=== PATIENT | female | born 1985 | race Caucasian/White ===

== ENCOUNTER → 2016-08-23 | Outpatient (CLI) | payer OTHER ==
[~2016-08-23] MED LIST: 'PARAFON FORTE500 M1 PO; ABREVA1 CRE TP; AMOXICILLIN500 MG PO; AMOXIL500 MG PO; ANAPROX DS550 MG PO; AUGMENTIN 875 M1 TAB PO; CEFUROXIME AXE250 MG PO; CELEXA40 MG; CILOXAN 2.5 ML2.5 ML OPH; CIPROFLOXACIN500 MG PO; CLARITIN10 MG PO; CLEOCIN HCL150 MG PO; CLINDAMYCIN150 MG; CLINDAMYCIN150 MG PO; COMPAZINE10 MG PO; CYCLOBENZAPRINE10 MG PO; DAYPRO600 M1 PO; DOXIPIN; DOXYCYCLINE HY100 M3 PO; HYDROCODONE BIT1 T11 PO; IBU-8800 MG PO; IBU800 MG PO; KEFLEX500 MG PO; LAMICTAL1 TAB; LAMICTAL100 MG PO; MACROBID100 M1 PO; MOTRIN800 MG PO; Motrin,Rufen800 MG PO; NAPROSYN; NAPROSYN500 MG PO; NO DAILY MEDS; PEN-VEE K500 MG PO; PERCOGESIC EXTR1 TAB PO; PHENERGAN W/DM120 ML PO; PHENERGAN25 M1 PO; PRILOSEC40 MG PO; PROZAC40 MG PO; ROBAXIN750 MG PO; TRAMADOL HCL50 MG PO; TRIMOX500 MG PO; TYLENOL W/CODEI1 TA2 PO; ULTRAM50 MG PO; VALIUM10 MG PO; VICODIN 5/500 505 MG PO; XANAX0.5 MG PO; XANAX1 MG PO; ZITHROMAX Z PA250 MG PO; ZOFRAN ODT4 MG SL; ZYRTEC10 MG PO
== END | disposition home or self-care (01) ==
LOC: MRI 01:58
DX: M51.37 Other intervertebral disc degeneration, lumbosacral region (principal); M47.896 Other spondylosis, lumbar region

== ENCOUNTER 2016-12-30 16:38 | Emergency (ER) | payer SELFPAY ==
[~2016-12-30] VITALS: Wt 98.0 kg
[2016-12-30] MEDS ORDERED: CEPHALEXIN500 M1 PO (19:06)
== END 2016-12-30 18:24 | disposition home or self-care (01) ==
LOC: ED 16:38
DX: S90.32XA Contusion of left foot, initial encounter (principal); L02.31 Cutaneous abscess of buttock; F17.200 Nicotine dependence, unspecified, uncomplicated; Z88.2 Allergy status to sulfonamides; W20.8XXA Other cause of strike by thrown, projected or falling object, initial encounter; Y93.89 Activity, other specified; Y92.89 Other specified places as the place of occurrence of the external cause; Y99.8 Other external cause status

== ENCOUNTER 2017-01-29 21:26 | Emergency (ER) | payer OTHER ==
[~2017-01-29] VITALS: Ht 177.8 cm; Wt 97.5 kg
[~2017-01-29 21:26] MED LIST changes: +CEPHALEXIN500 M1 PO
[2017-01-29] MEDS ORDERED: FLAGYL500 MG PO (21:56)
[2017-01-29] MEDS ORDERED: KETOROLAC10 MG PO (21:56)
[2017-01-29] MEDS ORDERED: VIBRAMYCIN100 MG PO (21:56)
== END 2017-01-29 22:02 | disposition home or self-care (01) ==
LOC: ED 21:26
DX: L03.116 Cellulitis of left lower limb (principal); F17.200 Nicotine dependence, unspecified, uncomplicated; Z88.2 Allergy status to sulfonamides

== ENCOUNTER 2017-04-17 11:34 | Emergency (ER) | payer OTHER ==
[~2017-04-17] VITALS: Ht 177.8 cm; Wt 104.3 kg
[~2017-04-17 11:34] MED LIST changes: +FLAGYL500 MG PO; +KETOROLAC10 MG PO; +VIBRAMYCIN100 MG PO
[2017-04-17] MEDS ORDERED: DOXYCYCLINE100 M3 PO (11:56)
[2017-04-17] MEDS ORDERED: NORCO 5-325 TA1 EACH PO (11:56)
== END 2017-04-17 12:10 | disposition home or self-care (01) ==
LOC: ED 11:34
DX: L02.01 Cutaneous abscess of face (principal); Z98.890 Other specified postprocedural states; Z98.51 Tubal ligation status; Z79.899 Other long term (current) drug therapy; Z88.2 Allergy status to sulfonamides

== ENCOUNTER 2017-05-02 17:08 | Emergency (ER) | payer OTHER ==
[~2017-05-02] VITALS: Ht 177.8 cm
[~2017-05-02 17:08] MED LIST changes: +DOXYCYCLINE100 M3 PO; +NORCO 5-325 TA1 EACH PO
== END 2017-05-02 20:26 | disposition home or self-care (01) ==
LOC: ED 17:08
DX: M54.2 Cervicalgia (principal); M54.5 Low back pain; M25.561 Pain in right knee; M25.562 Pain in left knee; Z88.2 Allergy status to sulfonamides; V59.9XXA Occupant (driver) (passenger) of pick-up truck or van injured in unspecified traffic accident, initial encounter; Y93.89 Activity, other specified; Y92.413 State road as the place of occurrence of the external cause; Y99.8 Other external cause status

== ENCOUNTER 2017-06-07 20:52 | Emergency (ER) | payer OTHER ==
[~2017-06-07] VITALS: Ht 165.1 cm; Wt 74.8 kg
[2017-06-07] MEDS ORDERED: ANAPROX DS550 MG PO (21:03)
[2017-06-07] MEDS ORDERED: VIBRAMYCIN100 MG PO (21:03)
== END 2017-06-07 21:12 | disposition home or self-care (01) ==
LOC: ED 20:52
DX: L02.01 Cutaneous abscess of face (principal); Z86.14 Personal history of Methicillin resistant Staphylococcus aureus infection; F17.200 Nicotine dependence, unspecified, uncomplicated; Z98.51 Tubal ligation status; Z98.890 Other specified postprocedural states; Z79.899 Other long term (current) drug therapy; Z88.2 Allergy status to sulfonamides

== ENCOUNTER 2018-01-30 13:57 | Emergency (ER) | payer OTHER ==
[~2018-01-30] VITALS: Ht 177.8 cm; Wt 95.3 kg
[2018-01-30] MEDS ORDERED: AMOXICILLIN500 M2 PO (14:48)
== END 2018-01-30 15:02 | disposition home or self-care (01) ==
LOC: ED 13:57
DX: H66.93 Otitis media, unspecified, bilateral (principal); J32.1 Chronic frontal sinusitis; Z88.2 Allergy status to sulfonamides

== ENCOUNTER 2018-07-04 13:27 | Emergency (ER) | payer OTHER ==
[~2018-07-04] VITALS: Ht 175.2 cm; Wt 108.0 kg
[~2018-07-04 13:27] MED LIST changes: +AMOXICILLIN500 M2 PO
[2018-07-04 14:07] LABS: BASO % 0.3 % (0.0-1.0); EOS # 0.2 10*3/uL (0.0-0.4); EOS % 1.9 % (1.0-4.0); HEMATOCRIT 44.4 % (37.0-47.0); HEMOGLOBIN 15.4 g/dl (12.0-16.0); LYMPH # 0.9 10*3/uL (1.3-4.4); MEAN CELL VOLUME 84.6 fl (81.0-99.0); MEAN CORPUSCULAR HGB 29.3 pg (27.0-31.0); MEAN CORPUSCULAR HGB CONC 34.7 g/dl (33.0-37.0); MEAN PLATELET VOLUME 9.5 fl (9.6-12.3); MONO # 0.7 10*3/uL (0.1-1.0); MONO % 7.8 % (3.0-9.0); NEUT # 7.6 10*3/uL (2.3-7.9); NEUT % 80.6 % (47.0-73.0); PLATELET COUNT AUTOMATED 246 10*3/uL (130-400); RED BLOOD COUNT 5.25 10*6/uL (4.10-5.10); RED CELL DISTRI WIDTH 12.6 % (0-14.5); WHITE BLOOD COUNT 9.5 10*3/uL (4.8-10.8)
[2018-07-04 14:23] LABS: ALBUMIN 3.9 gm/dl (3.1-4.5); ALKALINE PHOSPHATASE 61 U/L (45-117); BUN 14 mg/dl (7-24); CHLORIDE 104 mmol/L (98-107); CREATININE 0.85 mg/dL (0.55-1.02); LIPASE 76 U/L (73-393); POTASSIUM 3.4 mmol/L (3.5-5.1); SGOT/AST 11 IU/L (3-35); SGPT/ALT 26 U/L (12-78); SODIUM 133 mmol/L (136-145); TOTAL PROTEIN 7.2 gm/dL (6.4-8.2)
[2018-07-04 14:30] LABS: BILIRUBIN NEGATIVE (NEGATIVE); BLOOD NEGATIVE (NEGATIVE); CLARITY CLEAR (CLEAR); COLOR YELLOW (YELLOW); GLUCOSE NEGATIVE (NEGATIVE); KETONE NEGATIVE (NEGATIVE); LEUKO ESTERASE NEGATIVE (NEGATIVE); NITRITE NEGATIVE (NEGATIVE); PH 6.5 (5.0-9.0); SPECIFIC GRAVITY <= 1.005 (1.005-1.030); UROBILINOGEN 0.2 E.U./dl (0.2-1.0)
[2018-07-04 14:39] LABS: BACTERIA 1+
[2018-07-04] MEDS ORDERED: ZOFRAN4 MG PO (16:41)
== END 2018-07-04 16:48 | disposition home or self-care (01) ==
LOC: ED 13:27
PROVIDERS: Nurse Practitioner Family
DX: A08.4 Viral intestinal infection, unspecified (principal); Z88.2 Allergy status to sulfonamides

== ENCOUNTER 2018-11-14 13:28 | Emergency (ER) | payer OTHER ==
[~2018-11-14] VITALS: Ht 177.8 cm; Wt 104.3 kg
[~2018-11-14 13:28] MED LIST changes: +ZOFRAN4 MG PO
[2018-11-14 14:04] LABS: BASO % 0.5 % (0.0-1.0); EOS # 0.5 10*3/uL (0.0-0.4); EOS % 6.1 % (1.0-4.0); HEMATOCRIT 40.8 % (37.0-47.0); HEMOGLOBIN 13.6 g/dl (12.0-16.0); LYMPH # 1.9 10*3/uL (1.3-4.4); LYMPH % 25.4 % (27.0-41.0); MEAN CELL VOLUME 88.3 fl (81.0-99.0); MEAN CORPUSCULAR HGB 29.4 pg (27.0-31.0); MEAN CORPUSCULAR HGB CONC 33.3 g/dl (33.0-37.0); MEAN PLATELET VOLUME 9.7 fl (9.6-12.3); MONO # 0.6 10*3/uL (0.1-1.0); MONO % 7.5 % (3.0-9.0); NEUT # 4.6 10*3/uL (2.3-7.9); NEUT % 60.2 % (47.0-73.0); PLATELET COUNT AUTOMATED 254 10*3/uL (130-400); RED BLOOD COUNT 4.62 10*6/uL (4.10-5.10); RED CELL DISTRI WIDTH 13.2 % (0-14.5); WHITE BLOOD COUNT 7.7 10*3/uL (4.8-10.8)
[2018-11-14 14:21] LABS: ALBUMIN 3.8 gm/dl (3.1-4.5); ALKALINE PHOSPHATASE 55 U/L (45-117); BUN 7 mg/dl (7-24); CHLORIDE 109 mmol/L (98-107); LIPASE 114 U/L (73-393); POTASSIUM 3.3 mmol/L (3.5-5.1); SGOT/AST 13 IU/L (3-35); SGPT/ALT 21 U/L (12-78); SODIUM 141 mmol/L (136-145); TOTAL PROTEIN 6.8 gm/dL (6.4-8.2)
[2018-11-14 14:29] LABS: BILIRUBIN NEGATIVE (NEGATIVE); BLOOD NEGATIVE (NEGATIVE); CLARITY CLEAR (CLEAR); COLOR YELLOW (YELLOW); GLUCOSE NEGATIVE (NEGATIVE); KETONE NEGATIVE (NEGATIVE); LEUKO ESTERASE NEGATIVE (NEGATIVE); NITRITE NEGATIVE (NEGATIVE); UROBILINOGEN 0.2 E.U./dl (0.2-1.0)
[2018-11-14 14:36] LABS: EPITHELIAL CELLS 0-2
[2018-11-14] MEDS ORDERED: ZOFRAN4 MG PO (15:11)
== END 2018-11-14 15:40 | disposition home or self-care (01) ==
LOC: ED 13:28
PROVIDERS: Nurse Practitioner Family
DX: N30.10 Interstitial cystitis (chronic) without hematuria (principal); E16.2 Hypoglycemia, unspecified; K21.9 Gastro-esophageal reflux disease without esophagitis; Z88.2 Allergy status to sulfonamides

== ENCOUNTER 2018-12-19 13:34 | Emergency (ER) | payer OTHER ==
[~2018-12-19] VITALS: Ht 177.8 cm; Wt 90.7 kg
[2018-12-19] MEDS ORDERED: VIBRAMYCIN100 MG PO (15:00)
== END 2018-12-19 15:15 | disposition home or self-care (01) ==
LOC: ED 13:34
DX: L02.415 Cutaneous abscess of right lower limb (principal); L02.211 Cutaneous abscess of abdominal wall; F17.200 Nicotine dependence, unspecified, uncomplicated; Z88.2 Allergy status to sulfonamides; Z86.14 Personal history of Methicillin resistant Staphylococcus aureus infection

== ENCOUNTER 2019-01-01 20:09 | Emergency (ER) | payer OTHER ==
[~2019-01-01] VITALS: Ht 175.2 cm; Wt 104.3 kg
[2019-01-01] MEDS ORDERED: VALTREX1000 MG PO (21:17)
== END 2019-01-01 21:29 | disposition home or self-care (01) ==
LOC: ED 20:09
DX: B02.9 Zoster without complications (principal); F17.200 Nicotine dependence, unspecified, uncomplicated; Z88.2 Allergy status to sulfonamides; Z79.2 Long term (current) use of antibiotics

== ENCOUNTER 2019-01-10 19:11 | Inpatient (IN) | payer OTHER ==
[~2019-01-10] VITALS: Ht 175.3 cm; Wt 101.3 kg
[~2019-01-10 19:11] MED LIST changes: +VALTREX1000 MG PO
[2019-01-10 19:13] VITALS: BP 124/84
[2019-01-10 19:58] LABS: BASO # 0.1 10*3/uL (0.0-0.1); BASO % 0.5 % (0.0-1.0); EOS # 0.4 10*3/uL (0.0-0.4); EOS % 2.7 % (1.0-4.0); HEMATOCRIT 38.8 % (37.0-47.0); LYMPH # 2.1 10*3/uL (1.3-4.4); LYMPH % 13.9 % (27.0-41.0); MEAN CELL VOLUME 88.4 fl (81.0-99.0); MEAN CORPUSCULAR HGB 29.6 pg (27.0-31.0); MEAN CORPUSCULAR HGB CONC 33.5 g/dl (33.0-37.0); MEAN PLATELET VOLUME 9.8 fl (9.6-12.3); MONO # 0.8 10*3/uL (0.1-1.0); NEUT # 11.8 10*3/uL (2.3-7.9); NEUT % 77.4 % (47.0-73.0); PLATELET COUNT AUTOMATED 301 10*3/uL (130-400); RED BLOOD COUNT 4.39 10*6/uL (4.10-5.10); RED CELL DISTRI WIDTH 13.1 % (0-14.5); WHITE BLOOD COUNT 15.3 10*3/uL (4.8-10.8)
[2019-01-10 20:14] LABS: ALBUMIN 3.6 gm/dl (3.1-4.5); ALKALINE PHOSPHATASE 62 U/L (45-117); BUN 7 mg/dl (7-24); CHLORIDE 109 mmol/L (98-107); CREATININE 0.86 mg/dL (0.55-1.02); POTASSIUM 3.4 mmol/L (3.5-5.1); SGOT/AST 13 IU/L (3-35); SGPT/ALT 20 U/L (12-78); SODIUM 139 mmol/L (136-145); TOTAL PROTEIN 7.4 gm/dL (6.4-8.2)
[2019-01-11 00:15] VITALS: BP 100/63
[2019-01-11] MEDS ORDERED: ONDANSETRON HYDR4 MG PO (00:23)
[2019-01-11] MEDS ORDERED: ELMIRON100 MG PO ×2 (00:24→00:26)
[2019-01-11] MEDS ORDERED: NAPROXEN500 MG PO (00:26)
[2019-01-11] MEDS ORDERED: OMEPRAZOLE40 MG PO (00:27)
[2019-01-11] MEDS ORDERED: IBU800 M1 PO (00:28)
[2019-01-11] MEDS ORDERED: FLUOXETINE HYDR20 M1 PO (00:31)
[2019-01-11] MEDS ORDERED: GOOD NEIGHBOR L10 MG PO (00:33)
[2019-01-11 08:00] VITALS: BP 100/65
[2019-01-11 12:00] VITALS: BP 106/58
[2019-01-11] MEDS ORDERED: AUGMENTIN 875875 MG PO (13:59)
== END 2019-01-11 15:00 | disposition home or self-care (01) | DRG 720 ==
LOC: ED 19:11 → EDHOLD 23:23 → 5E 23:23
PROVIDERS: Nurse Practitioner Family; ADMIT Internal Medicine
DX: A41.9 Sepsis, unspecified organism (principal); K61.1 Rectal abscess; B02.9 Zoster without complications; F41.9 Anxiety disorder, unspecified; K21.9 Gastro-esophageal reflux disease without esophagitis; E87.6 Hypokalemia; E87.8 Other disorders of electrolyte and fluid balance, not elsewhere classified; E44.0 Moderate protein-calorie malnutrition; F17.210 Nicotine dependence, cigarettes, uncomplicated; E66.9 Obesity, unspecified; N30.10 Interstitial cystitis (chronic) without hematuria; F31.60 Bipolar disorder, current episode mixed, unspecified; Z87.440 Personal history of urinary (tract) infections; Z98.891 History of uterine scar from previous surgery; Z90.89 Acquired absence of other organs; Z98.51 Tubal ligation status; Z82.49 Family history of ischemic heart disease and other diseases of the circulatory system; Z81.8 Family history of other mental and behavioral disorders; Z84.89 Family history of other specified conditions; Z88.2 Allergy status to sulfonamides; Z79.899 Other long term (current) drug therapy; Z71.6 Tobacco abuse counseling; Z68.33 Body mass index [BMI] 33.0-33.9, adult

== ENCOUNTER 2019-05-02 22:25 | Emergency (ER) | payer OTHER ==
[~2019-05-02] VITALS: Wt 106.6 kg
[~2019-05-02 22:25] MED LIST changes: +AUGMENTIN 875875 MG PO; +ELMIRON100 MG PO; +FLUOXETINE HYDR20 M1 PO; +GOOD NEIGHBOR L10 MG PO; +IBU800 M1 PO; +NAPROXEN500 MG PO; +OMEPRAZOLE40 MG PO; +ONDANSETRON HYDR4 MG PO
[2019-05-02] MEDS ORDERED: CEFADROXIL500 M1 PO (23:09)
== END 2019-05-03 00:10 | disposition home or self-care (01) ==
LOC: ED 22:25
DX: S51.811A Laceration without foreign body of right forearm, initial encounter (principal); F41.9 Anxiety disorder, unspecified; K21.9 Gastro-esophageal reflux disease without esophagitis; F17.200 Nicotine dependence, unspecified, uncomplicated; F31.9 Bipolar disorder, unspecified; Z79.2 Long term (current) use of antibiotics; Z88.2 Allergy status to sulfonamides; Z79.899 Other long term (current) drug therapy; W00.0XXA Fall on same level due to ice and snow, initial encounter; Y93.89 Activity, other specified; Y92.89 Other specified places as the place of occurrence of the external cause; Y99.8 Other external cause status

== ENCOUNTER 2019-08-06 15:33 | Emergency (ER) | payer OTHER ==
[~2019-08-06] VITALS: Ht 177.8 cm; Wt 106.6 kg
[~2019-08-06 15:33] MED LIST changes: +CEFADROXIL500 M1 PO
[2019-08-06] MEDS ORDERED: ANTIBIOTIC28.4 GM T (16:26)
[2019-08-06] MEDS ORDERED: CEPHALEXIN500 M1 PO (16:26)
== END 2019-08-06 17:26 | disposition home or self-care (01) ==
LOC: ED 15:33
DX: S61.211A Laceration without foreign body of left index finger without damage to nail, initial encounter (principal); F41.9 Anxiety disorder, unspecified; K21.9 Gastro-esophageal reflux disease without esophagitis; F31.9 Bipolar disorder, unspecified; Z88.2 Allergy status to sulfonamides; Z88.1 Allergy status to other antibiotic agents; Z79.899 Other long term (current) drug therapy; Z98.890 Other specified postprocedural states; Z96.22 Myringotomy tube(s) status; Z90.89 Acquired absence of other organs; Z98.51 Tubal ligation status; W26.8XXA Contact with other sharp object(s), not elsewhere classified, initial encounter; Y93.89 Activity, other specified; Y92.89 Other specified places as the place of occurrence of the external cause; Y99.8 Other external cause status

== ENCOUNTER → 2019-09-26 | Emergency (ER) | payer OTHER ==
[~2019-09-26] VITALS: Ht 175.2 cm; Wt 108.0 kg
[~2019-09-26] MED LIST changes: +ANTIBIOTIC28.4 GM T
== END ==
LOC: ED 15:47
DX: L02.31 Cutaneous abscess of buttock (principal); K21.9 Gastro-esophageal reflux disease without esophagitis; F17.200 Nicotine dependence, unspecified, uncomplicated; Z88.2 Allergy status to sulfonamides; Z79.899 Other long term (current) drug therapy

== ENCOUNTER → 2020-01-01 | Outpatient (CLI) | payer OTHER ==
[2020-01-01 11:10] LABS: BILIRUBIN Negative (Negative); BLOOD Negative (Negative); CLARITY Clear (Clear); COLOR Yellow (Yellow); GLUCOSE Negative (Negative); KETONE Negative (Negative); LEUKO ESTERASE Negative (Negative); NITRITE Negative (Negative); SPECIFIC GRAVITY 1.015 (1.001-1.030)
[2020-01-01 11:11] LABS: BASO # 0.1 10*3/uL (0.0-0.1); BASO % 0.5 % (0.0-1.0); EOS # 0.9 10*3/uL (0.0-0.4); EOS % 7.9 % (1.0-4.0); LYMPH # 2.5 10*3/uL (1.3-4.4); MEAN CELL VOLUME 84.2 fl (81.0-99.0); MEAN CORPUSCULAR HGB 28.4 pg (27.0-31.0); MEAN CORPUSCULAR HGB CONC 33.8 g/dl (33.0-37.0); MEAN PLATELET VOLUME 9.7 fl (9.6-12.3); MONO # 0.7 10*3/uL (0.1-1.0); MONO % 6.2 % (3.0-9.0); NEUT # 7.2 10*3/uL (2.3-7.9); NEUT % 62.2 % (47.0-73.0); PLATELET COUNT AUTOMATED 282 10*3/uL (130-400); RED BLOOD COUNT 4.75 10*6/uL (4.10-5.10); RED CELL DISTRI WIDTH 13.4 % (0-14.5); RETICULOCYTE % 2.07 % (0.50-2.50); WHITE BLOOD COUNT 11.5 10*3/uL (4.8-10.8)
[2020-01-01 11:41] LABS: RBC 0-2 rbc/hpf (0-2)
[2020-01-01 11:53] LABS: ALBUMIN 3.7 gm/dl (3.1-4.5); BUN 10 mg/dl (7-24); CHLORIDE 108 mmol/L (98-107); CHOLESTEROL 175 mg/dL (<200); CREATININE 0.88 mg/dL (0.55-1.02); HDL CHOLESTEROL 32 mg/dl (40-60); IRON 42 ug/dL (50-170); LDL CHOLESTEROL 105 mg/dL (9-159); SGOT/AST 13 IU/L (3-35); SGPT/ALT 18 U/L (12-78); SODIUM 137 mmol/L (136-145); THYROXINE (T4) TOTAL 8.7 ug/dl (4.8-13.9); TOTAL PROTEIN 7.4 gm/dL (6.4-8.2); TRIGLYCERIDES 188 mg/dl (<150); URIC ACID 4.4 mg/dL (2.6-6.0); VLDL CHOLESTEROL 38 mg/dL (6-40)
[2020-01-01 12:01] LABS: ALKALINE PHOSPHATASE 64 U/L (45-117); T3 UPTAKE 32 % (31-39); TOTAL IRON BINDING CAPACITY 299 ug/dl (250-450)
[2020-01-01 12:09] LABS: BETA-HCG, QUANT < 1.0 mIU/mL (1-3)
[2020-01-01 13:52] LABS: FERRITIN 24.4 ng/mL (10.0-291.0)
[2020-01-02 12:07] LABS: ANTI-DSDNA ANTIBODIES <1 IU/mL (0-9); RHEUMATOID ARTHRITIS FACTOR <10.0 IU/mL (0.0-13.9)
== END | disposition home or self-care (01) ==
LOC: LAB 10:44
PROVIDERS: ATTEND Family Medicine
DX: R79.89 Other specified abnormal findings of blood chemistry (principal); R53.83 Other fatigue; E55.9 Vitamin D deficiency, unspecified; R06.02 Shortness of breath

== ENCOUNTER → 2020-04-01 | Outpatient (CLI) | payer OTHER | END | disposition home or self-care (01) | LOC: CARD 03-26 09:30 | PROVIDERS: ATTEND Internal Medicine Cardiovascular Disease | DX: I49.3 Ventricular premature depolarization (principal) ==

== ENCOUNTER 2020-04-27 18:15 | Emergency (ER) | payer OTHER ==
[~2020-04-27] VITALS: Ht 177.8 cm; Wt 111.1 kg
[2020-04-27] MEDS ORDERED: CLINDAMYCIN HC300 MG PO (18:42)
[2020-04-27] MEDS ORDERED: Motrin,Rufen800 MG PO (18:42)
== END 2020-04-27 18:45 | disposition home or self-care (01) ==
LOC: ED 18:15
DX: L02.01 Cutaneous abscess of face (principal); L02.411 Cutaneous abscess of right axilla; F41.9 Anxiety disorder, unspecified; K21.9 Gastro-esophageal reflux disease without esophagitis; F31.9 Bipolar disorder, unspecified; F17.200 Nicotine dependence, unspecified, uncomplicated; Z88.2 Allergy status to sulfonamides; Z79.2 Long term (current) use of antibiotics; Z79.899 Other long term (current) drug therapy; Z98.890 Other specified postprocedural states; Z90.89 Acquired absence of other organs; Z98.51 Tubal ligation status; Z96.22 Myringotomy tube(s) status

== ENCOUNTER 2020-07-27 13:29 | Emergency (ER) | payer OTHER ==
[~2020-07-27] VITALS: Ht 175.2 cm; Wt 104.3 kg
[~2020-07-27 13:29] MED LIST changes: +CLINDAMYCIN HC300 MG PO
[2020-07-27] MEDS ORDERED: PREDNISONE20 M1 PO (16:06)
== END 2020-07-27 16:12 | disposition home or self-care (01) ==
LOC: ED 13:29
DX: Z88.2 Allergy status to sulfonamides (principal); Z79.2 Long term (current) use of antibiotics; Z79.899 Other long term (current) drug therapy; Z98.890 Other specified postprocedural states; Z96.22 Myringotomy tube(s) status; Z90.89 Acquired absence of other organs; Z98.51 Tubal ligation status; F17.200 Nicotine dependence, unspecified, uncomplicated; T78.49XA Other allergy, initial encounter; X58.XXXA Exposure to other specified factors, initial encounter

== ENCOUNTER → 2021-03-30 | Outpatient (CLI) | payer OTHER ==
[~2021-03-30] MED LIST changes: +CIPRO500 MG PO; +FLOVENT DISKUS50 MCG INH; +FLUOXETINE40 MG PO; +HYDROCODONE-AC1 EAC1 PO; +METOPROLOL SUCC50 M1 PO; +ONDANSETRON4 MG SL; +PREDNISONE20 M1 PO; +PROZAC20 MG PO; +TOPROL XL25 MG PO; +ZIPRASIDONE HCL40 MG PO; +ZYRTEC10 M3 PO
== END | disposition home or self-care (01) ==
LOC: COVID19 16:05
PROVIDERS: ATTEND Internal Medicine
DX: Z11.52 Encounter for screening for COVID-19 (principal)

== ENCOUNTER → 2021-09-11 | Outpatient (CLI) | payer OTHER ==
[2021-09-11 16:17] LABS: BASO # 0.1 10*3/uL (0.0-0.1); BASO % 0.8 % (0.0-1.0); EOS # 0.9 10*3/uL (0.0-0.4); EOS % 9.9 % (1.0-4.0); HEMATOCRIT 41.8 % (37.0-47.0); LYMPH # 2.4 10*3/uL (1.3-4.4); LYMPH % 25.5 % (27.0-41.0); MEAN CELL VOLUME 85.3 fl (81.0-99.0); MEAN CORPUSCULAR HGB 28.8 pg (27.0-31.0); MEAN CORPUSCULAR HGB CONC 33.7 g/dl (33.0-37.0); MEAN PLATELET VOLUME 9.3 fl (9.6-12.3); MONO # 0.6 10*3/uL (0.1-1.0); MONO % 6.7 % (3.0-9.0); NEUT # 5.4 10*3/uL (2.3-7.9); NEUT % 56.8 % (47.0-73.0); PLATELET COUNT AUTOMATED 297 10*3/uL (130-400); RED CELL DISTRI WIDTH 12.9 % (0-14.5); RETICULOCYTE % 2.22 % (0.50-2.50); WHITE BLOOD COUNT 9.5 10*3/uL (4.8-10.8)
[2021-09-11 16:22] LABS: BILIRUBIN Negative (Negative); BLOOD Negative (Negative); CLARITY Clear (Clear); COLOR Yellow (Yellow); GLUCOSE Negative (Negative); KETONE Negative (Negative); LEUKO ESTERASE Negative (Negative); NITRITE Negative (Negative); SPECIFIC GRAVITY 1.015 (1.001-1.030)
[2021-09-11 16:31] LABS: BACTERIA 1+
[2021-09-11 16:35] LABS: ALKALINE PHOSPHATASE 68 U/L (45-117); BUN 12 mg/dl (7-24); CHLORIDE 107 mmol/L (98-107); CHOLESTEROL 190 mg/dL (<200); GAMMA GLUTAMYL TRANSPEPTIDASE 21 U/L (5-55); IRON 122 ug/dL (50-170); LDL CHOLESTEROL 127 mg/dL (9-159); POTASSIUM 3.9 mmol/L (3.5-5.1); SGOT/AST 16 IU/L (3-35); SGPT/ALT 17 U/L (12-78); SODIUM 138 mmol/L (136-145); TOTAL IRON BINDING CAPACITY 346 ug/dl (250-450); TOTAL PROTEIN 7.5 gm/dL (6.4-8.2); TRIGLYCERIDES 157 mg/dl (<150); URIC ACID 5.6 mg/dL (2.6-6.0)
[2021-09-11 17:11] LABS: FERRITIN 14.8 ng/mL (10.0-291.0); VITAMIN D, 25-HYDROXY 13.1 ng/mL (30-100)
[2021-09-12 04:06] LABS: RHEUMATOID FACTOR <10.0 IU/mL (<14.0)
[2021-09-14 13:06] LABS: ANTI-DSDNA ANTIBODIES 1 IU/mL (0-9)
== END | disposition home or self-care (01) ==
LOC: LAB 15:53
PROVIDERS: ATTEND Family Medicine
DX: M19.032 Primary osteoarthritis, left wrist (principal); M19.031 Primary osteoarthritis, right wrist; M21.831 Other specified acquired deformities of right forearm; R53.83 Other fatigue; R79.89 Other specified abnormal findings of blood chemistry; R74.8 Abnormal levels of other serum enzymes; E55.9 Vitamin D deficiency, unspecified

== ENCOUNTER 2022-09-11 14:29 | Emergency (ER) | payer OTHER ==
[~2022-09-11] VITALS: Ht 172.7 cm; Wt 93.0 kg
[2022-09-11] MEDS ORDERED: PREDNISONE50 MG PO (14:56)
[2022-09-11] MEDS ORDERED: BENADRYL ALLERG25 M5 PO (14:56)
== END 2022-09-11 14:55 | disposition home or self-care (01) ==
LOC: ED 14:29
DX: T78.40XA Allergy, unspecified, initial encounter (principal); H57.89 Other specified disorders of eye and adnexa; F41.9 Anxiety disorder, unspecified; K21.9 Gastro-esophageal reflux disease without esophagitis; F31.9 Bipolar disorder, unspecified; Z88.2 Allergy status to sulfonamides; Z90.89 Acquired absence of other organs; Z98.51 Tubal ligation status; Z98.890 Other specified postprocedural states; F12.90 Cannabis use, unspecified, uncomplicated; F17.200 Nicotine dependence, unspecified, uncomplicated; X58.XXXA Exposure to other specified factors, initial encounter

== ENCOUNTER 2023-01-15 12:56 | Emergency (ER) | payer OTHER ==
[~2023-01-15] VITALS: Ht 172.7 cm; Wt 97.5 kg
[~2023-01-15 12:56] MED LIST changes: +BENADRYL ALLERG25 M5 PO; +PREDNISONE50 MG PO
[2023-01-15] MEDS ORDERED: Carafate1 GM PO (14:03)
[2023-01-15] MEDS ORDERED: BUSPAR5 MG PO (14:03)
[2023-01-15] MEDS ORDERED: CIPROFLOXACIN500 M4 PO (14:03)
[2023-01-15] MEDS ORDERED: GOOD NEIGHBOR L10 MG PO (14:04)
[2023-01-15] MEDS ORDERED: AMOX-CLAV 875-1 EACH PO (16:49)
== END 2023-01-15 17:23 | disposition home or self-care (01) ==
LOC: ED 12:56
DX: K80.20 Calculus of gallbladder without cholecystitis without obstruction (principal); M54.50 Low back pain, unspecified; J32.9 Chronic sinusitis, unspecified; R51.9 Headache, unspecified; R09.81 Nasal congestion; F41.9 Anxiety disorder, unspecified; F31.9 Bipolar disorder, unspecified; K21.9 Gastro-esophageal reflux disease without esophagitis; E66.9 Obesity, unspecified; F17.210 Nicotine dependence, cigarettes, uncomplicated; Z88.2 Allergy status to sulfonamides; Z79.2 Long term (current) use of antibiotics; Z79.899 Other long term (current) drug therapy; Z68.30 Body mass index [BMI] 30.0-30.9, adult; Z98.890 Other specified postprocedural states; Z96.22 Myringotomy tube(s) status; Z90.89 Acquired absence of other organs; Z98.51 Tubal ligation status

== ENCOUNTER 2023-01-31 15:13 | Emergency (ER) | payer OTHER ==
[~2023-01-31] VITALS: Ht 172.7 cm; Wt 97.5 kg
[~2023-01-31 15:13] MED LIST changes: +AMOX-CLAV 875-1 EACH PO; +BUSPAR5 MG PO; +CIPROFLOXACIN500 M4 PO; +Carafate1 GM PO
[2023-01-31] MEDS ORDERED: NATURE'S BLEND F1 MG PO (16:46)
[2023-01-31] MEDS ORDERED: METOPROLOL SUC100 M1 PO (16:46)
[2023-01-31] MEDS ORDERED: ONDANSETRON HYDR4 MG PO (16:47)
[2023-01-31] MEDS ORDERED: VITAMIN D350 MC2 GT (16:47)
[2023-01-31 17:21] LABS: BILIRUBIN Negative (Negative); BLOOD Negative (Negative); CLARITY Clear (Clear); COLOR Yellow (Yellow); GLUCOSE Negative (Negative); KETONE Negative (Negative); LEUKO ESTERASE Negative (Negative); NITRITE Negative (Negative); SPECIFIC GRAVITY <= 1.005 (1.001-1.030); UROBILINOGEN 0.2 E.U./dl (0.0-1.0)
[2023-01-31 17:48] LABS: BACTERIA 1+; RBC 0-2 rbc/hpf (0-2); WBC 0-2 wbc/hpf (0-5); YEAST TRACE
== END 2023-01-31 19:19 | disposition home or self-care (01) ==
LOC: ED 15:13
PROVIDERS: Nurse Practitioner
DX: R30.0 Dysuria (principal); F41.9 Anxiety disorder, unspecified; K21.9 Gastro-esophageal reflux disease without esophagitis; F31.9 Bipolar disorder, unspecified; Z88.2 Allergy status to sulfonamides; Z98.890 Other specified postprocedural states; Z90.89 Acquired absence of other organs; Z98.51 Tubal ligation status; F17.200 Nicotine dependence, unspecified, uncomplicated; F12.90 Cannabis use, unspecified, uncomplicated

== ENCOUNTER 2023-05-30 15:04 | Emergency (ER) | payer OTHER ==
[~2023-05-30] VITALS: Ht 175.2 cm; Wt 100.7 kg
[~2023-05-30 15:04] MED LIST changes: +METOPROLOL SUC100 M1 PO; +NATURE'S BLEND F1 MG PO; +VITAMIN D350 MC2 GT
[2023-05-30] MEDS ORDERED: ALPRAZOLAM0.5 M3 PO (15:17)
[2023-05-30] MEDS ORDERED: ZYRTEC10 M2 PO (15:17)
[2023-05-30] MEDS ORDERED: Rabies Immune Globulin 300 UNIT/2 ML VIAL IM ONE ×2 (15:30→15:40)
[2023-05-30] MEDS ORDERED: Rabies Vaccine 1 ML VIAL IM ONE (15:35)
[2023-05-30] MEDS ORDERED: Amoxicillin/Clavulanate Pota 875 MG TAB PO ONE (15:40)
[2023-05-30] MEDS ORDERED: Rabies Immune Globulin 150O UNIT/10 ML IM ONE (15:40)
[2023-05-30] MEDS ORDERED: AMOX-CLAV 875-1 EACH PO (15:42)
== END 2023-05-30 16:47 | disposition home or self-care (01) ==
LOC: ED 15:04
DX: S61.236A Puncture wound without foreign body of right little finger without damage to nail, initial encounter (principal); F41.9 Anxiety disorder, unspecified; L03.011 Cellulitis of right finger; F31.9 Bipolar disorder, unspecified; K21.9 Gastro-esophageal reflux disease without esophagitis; F17.200 Nicotine dependence, unspecified, uncomplicated; F12.10 Cannabis abuse, uncomplicated; Z88.2 Allergy status to sulfonamides; Z98.890 Other specified postprocedural states; Z90.89 Acquired absence of other organs; Z98.51 Tubal ligation status; W55.01XA Bitten by cat, initial encounter; Y93.89 Activity, other specified; Y92.89 Other specified places as the place of occurrence of the external cause; Y99.8 Other external cause status

== ENCOUNTER 2023-06-02 17:29 | Emergency (ER) | payer OTHER ==
[~2023-06-02] VITALS: Ht 175.2 cm; Wt 99.8 kg
[~2023-06-02 17:29] MED LIST changes: +ALPRAZOLAM0.5 M3 PO; +ZYRTEC10 M2 PO
[2023-06-02] MEDS ORDERED: Rabies Vaccine 1 ML VIAL IM ONE (17:45)
== END 2023-06-02 17:58 | disposition home or self-care (01) ==
LOC: ED 17:29
DX: T14.8XXD Other injury of unspecified body region, subsequent encounter (principal); F12.90 Cannabis use, unspecified, uncomplicated; F17.200 Nicotine dependence, unspecified, uncomplicated; Z88.2 Allergy status to sulfonamides; Z98.890 Other specified postprocedural states; Z90.89 Acquired absence of other organs; Z98.51 Tubal ligation status; W64.XXXD Exposure to other animate mechanical forces, subsequent encounter

== ENCOUNTER → 2023-08-18 | Outpatient (CLI) | payer OTHER | END | disposition home or self-care (01) | LOC: US 07:53 | PROVIDERS: ATTEND Family Medicine | DX: K76.0 Fatty (change of) liver, not elsewhere classified (principal); R10.11 Right upper quadrant pain; R10.2 Pelvic and perineal pain; R11.0 Nausea; N92.6 Irregular menstruation, unspecified ==

== ENCOUNTER → 2023-09-09 | Outpatient (CLI) | payer OTHER ==
[~2023-09-09] MED LIST changes: +IOHEXOL 300 MG/ML 100 ML VIAL IV ONE; +IOHEXOL 300 MG/ML 100 ML VIAL ONE
== END | disposition home or self-care (01) ==
LOC: CT 13:00
PROVIDERS: ATTEND Family Medicine
DX: E27.8 Other specified disorders of adrenal gland (principal); R10.84 Generalized abdominal pain; R10.2 Pelvic and perineal pain

== ENCOUNTER → 2023-09-14 | Outpatient (CLI) | payer OTHER ==
[~2023-09-14] MED LIST changes: -IOHEXOL 300 MG/ML 100 ML VIAL IV ONE; -IOHEXOL 300 MG/ML 100 ML VIAL ONE; +SINCALIDE 2 MCG in SODIUM CHLORIDE 0.9% 50 ML IV ONE
== END | disposition home or self-care (01) ==
LOC: NM 00:19
PROVIDERS: ATTEND Family Medicine
DX: R10.84 Generalized abdominal pain (principal); R11.0 Nausea; R11.10 Vomiting, unspecified

== ENCOUNTER → 2023-12-09 | Outpatient (CLI) | payer OTHER ==
[~2023-12-09] MED LIST changes: -SINCALIDE 2 MCG in SODIUM CHLORIDE 0.9% 50 ML IV ONE
[2023-12-09 14:06] LABS: BASO # 0.1 10*3/uL (0.0-0.1); BASO % 0.5 % (0.0-1.0); EOS # 0.7 10*3/uL (0.0-0.4); EOS % 7.1 % (1.0-4.0); HEMATOCRIT 36.9 % (37.0-47.0); LYMPH # 2.3 10*3/uL (1.3-4.4); LYMPH % 24.8 % (27.0-41.0); MEAN CELL VOLUME 84.6 fl (81.0-99.0); MEAN CORPUSCULAR HGB 27.3 pg (27.0-31.0); MEAN CORPUSCULAR HGB CONC 32.2 g/dl (33.0-37.0); MEAN PLATELET VOLUME 8.6 fl (9.6-12.3); MONO # 0.5 10*3/uL (0.1-1.0); MONO % 5.8 % (3.0-9.0); NEUT # 5.7 10*3/uL (2.3-7.9); NEUT % 61.4 % (47.0-73.0); PLATELET COUNT AUTOMATED 326 10*3/uL (130-400); RED BLOOD COUNT 4.36 10*6/uL (4.10-5.10); RED CELL DISTRI WIDTH 14.1 % (0-14.5); RETICULOCYTE % 1.87 % (0.50-2.50); WHITE BLOOD COUNT 9.3 10*3/uL (4.8-10.8)
[2023-12-09 14:14] LABS: BILIRUBIN Negative (Negative); BLOOD 1+ (Negative); CLARITY Clear (Clear); COLOR Yellow (Yellow); GLUCOSE Negative (Negative); KETONE Negative (Negative); LEUKO ESTERASE Negative (Negative); NITRITE Negative (Negative); UROBILINOGEN 0.2 E.U./dl (0.0-1.0)
[2023-12-09 14:35] LABS: EPITHELIAL CELLS 16-20
[2023-12-09 14:51] LABS: VITAMIN D, 25-HYDROXY 40.3 ng/mL (30-100)
[2023-12-09 14:52] LABS: ALKALINE PHOSPHATASE 76 U/L (46-116); BUN 7 mg/dl (9-23); CHLORIDE 104 mmol/L (98-107); CHOLESTEROL 204 mg/dL (<200); GAMMA GLUTAMYL TRANSPEPTIDASE 26 U/L (0-73); LDL CHOLESTEROL 120 mg/dL (9-159); POTASSIUM 4.1 mmol/L (3.4-5.1); SGPT/ALT 32 U/L (5-49); T3 UPTAKE 27.9 % (22.4-36.7); THYROXINE (T4) TOTAL 7.1 ug/dl (4.5-10.9); TOTAL PROTEIN 6.9 gm/dL (6.0-8.0); TRIGLYCERIDES 227 mg/dl (<150); URIC ACID 5.5 mg/dL (3.1-7.8)
[2023-12-12 13:06] LABS: ANTI-DSDNA ANTIBODIES <1 IU/mL (0-9)
== END | disposition home or self-care (01) ==
LOC: LAB 13:40
PROVIDERS: ATTEND Family Medicine
DX: R53.83 Other fatigue (principal); R79.89 Other specified abnormal findings of blood chemistry; E78.5 Hyperlipidemia, unspecified; E55.9 Vitamin D deficiency, unspecified; R06.02 Shortness of breath

== ENCOUNTER 2024-01-26 13:20 | Emergency (ER) | payer OTHER ==
[~2024-01-26] VITALS: Ht 175.2 cm; Wt 99.8 kg
[2024-01-26 14:21] LABS: BASO # 0.1 10*3/uL (0.0-0.1); BASO % 0.8 % (0.0-1.0); EOS # 0.5 10*3/uL (0.0-0.4); EOS % 5.9 % (1.0-4.0); HEMATOCRIT 35.2 % (37.0-47.0); MEAN CELL VOLUME 84.2 fl (81.0-99.0); MEAN CORPUSCULAR HGB CONC 32.1 g/dl (33.0-37.0); MEAN PLATELET VOLUME 8.5 fl (9.6-12.3); MONO # 0.6 10*3/uL (0.1-1.0); MONO % 6.9 % (3.0-9.0); NEUT # 5.5 10*3/uL (2.3-7.9); NEUT % 59.6 % (47.0-73.0); PLATELET COUNT AUTOMATED 288 10*3/uL (130-400); RED BLOOD COUNT 4.18 10*6/uL (4.10-5.10); WHITE BLOOD COUNT 9.2 10*3/uL (4.8-10.8)
[2024-01-26 14:44] LABS: BUN 6 mg/dl (9-23); CHLORIDE 105 mmol/L (98-107)
[2024-01-26] MEDS ORDERED: Amoxicillin/Clavulanate Pota 875 MG TAB PO ONE (15:05)
== END 2024-01-26 15:06 | disposition home or self-care (01) ==
LOC: ED 13:20
PROVIDERS: Nurse Practitioner Family
DX: B34.9 Viral infection, unspecified (principal); Z20.822 Contact with and (suspected) exposure to COVID-19; R10.2 Pelvic and perineal pain; H66.93 Otitis media, unspecified, bilateral; F41.9 Anxiety disorder, unspecified; F31.9 Bipolar disorder, unspecified; K21.9 Gastro-esophageal reflux disease without esophagitis; F17.200 Nicotine dependence, unspecified, uncomplicated; F12.90 Cannabis use, unspecified, uncomplicated; Z88.2 Allergy status to sulfonamides; Z90.89 Acquired absence of other organs; Z98.890 Other specified postprocedural states; Z98.51 Tubal ligation status

== ENCOUNTER 2024-02-25 16:04 | Emergency (ER) | payer OTHER ==
[~2024-02-25] VITALS: Ht 175.2 cm; Wt 104.3 kg
[2024-02-25] MEDS ORDERED: METOPROLOL SUCC50 M1 PO (16:32)
[2024-02-25 17:52] LABS: BASO # 0.1 10*3/uL (0.0-0.1); BASO % 0.4 % (0.0-1.0); EOS # 0.1 10*3/uL (0.0-0.4); EOS % 0.9 % (1.0-4.0); HEMATOCRIT 37.4 % (37.0-47.0); MEAN CELL VOLUME 81.5 fl (81.0-99.0); MEAN CORPUSCULAR HGB 26.8 pg (27.0-31.0); MEAN CORPUSCULAR HGB CONC 32.9 g/dl (33.0-37.0); MEAN PLATELET VOLUME 8.4 fl (9.6-12.3); MONO # 0.7 10*3/uL (0.1-1.0); MONO % 4.6 % (3.0-9.0); NEUT # 10.3 10*3/uL (2.3-7.9); NEUT % 71.8 % (47.0-73.0); PLATELET COUNT AUTOMATED 433 10*3/uL (130-400); RED BLOOD COUNT 4.59 10*6/uL (4.10-5.10); RED CELL DISTRI WIDTH 15.1 % (0-14.5); WHITE BLOOD COUNT 14.3 10*3/uL (4.8-10.8)
[2024-02-25] MEDS ORDERED: Albuterol Sulf/Ipratropium 3 ML VIAL NEB ONE (18:05)
[2024-02-25] MEDS ORDERED: methylPREDNISolone sod succ 125 MG VIAL IM ONE (18:05)
[2024-02-25 18:08] LABS: BUN 8 mg/dl (9-23); CHLORIDE 104 mmol/L (98-107); POTASSIUM 3.8 mmol/L (3.4-5.1)
[2024-02-25 18:18] LABS: BILIRUBIN Negative (Negative); BLOOD Negative (Negative); CLARITY Clear (Clear); COLOR Yellow (Yellow); GLUCOSE Negative (Negative); KETONE Negative (Negative); LEUKO ESTERASE Negative (Negative); NITRITE Negative (Negative); SPECIFIC GRAVITY <= 1.005 (1.001-1.030); UROBILINOGEN 0.2 E.U./dl (0.0-1.0)
[2024-02-25 18:31] LABS: RBC 0-2 rbc/hpf (0-2); WBC 0-2 wbc/hpf (0-5)
[2024-02-25] MEDS ORDERED: AVPAK AZITHROM250 M1 PO (18:35)
[2024-02-25] MEDS ORDERED: PREDNISONE20 M1 PO (18:35)
[2024-02-25] MEDS ORDERED: AZITHROMYCIN 250 MG TAB PO ONE (18:40)
== END 2024-02-25 18:59 | disposition home or self-care (01) ==
LOC: ED 16:04
PROVIDERS: Nurse Practitioner Family
DX: J40 Bronchitis, not specified as acute or chronic (principal); F41.9 Anxiety disorder, unspecified; F31.9 Bipolar disorder, unspecified; K21.9 Gastro-esophageal reflux disease without esophagitis; R10.2 Pelvic and perineal pain; F17.200 Nicotine dependence, unspecified, uncomplicated; F12.10 Cannabis abuse, uncomplicated; Z88.2 Allergy status to sulfonamides; Z90.89 Acquired absence of other organs; Z98.51 Tubal ligation status; Z98.890 Other specified postprocedural states

== ENCOUNTER → 2025-01-29 | Outpatient (CLI) | payer OTHER ==
[~2025-01-29] MED LIST changes: +AVPAK AZITHROM250 M1 PO
[2025-01-29 10:24] LABS: BASO # 0.1 10*3/uL (0.0-0.1); BASO % 0.4 % (0.0-1.0); EOS # 0.5 10*3/uL (0.0-0.4); EOS % 4.5 % (1.0-4.0); MEAN CELL VOLUME 81.7 fl (81.0-99.0); MEAN CORPUSCULAR HGB 26.2 pg (27.0-31.0); MEAN PLATELET VOLUME 8.8 fl (9.6-12.3); MONO # 0.8 10*3/uL (0.1-1.0); MONO % 6.6 % (3.0-9.0); NEUT # 7.3 10*3/uL (2.3-7.9); NEUT % 60.9 % (47.0-73.0); NUCLEATED RED BLOOD CELL 0.0 % (0.0-0.0); NUCLEATED RED BLOOD CELL 0.0 10*3/uL (0.0-0.0); PLATELET COUNT AUTOMATED 313 10*3/uL (130-400); RED CELL DISTRI WIDTH 15.9 % (0-14.5); RETICULOCYTE % 2.20 % (0.50-2.50)
[2025-01-29 10:28] LABS: BILIRUBIN Negative (Negative); BLOOD Negative (Negative); CLARITY Clear (Clear); COLOR Yellow (Yellow); KETONE Negative (Negative); LEUKO ESTERASE Negative (Negative); NITRITE Negative (Negative); PH 6.0 (4.5-8.0); SPECIFIC GRAVITY 1.010 (1.001-1.030); UROBILINOGEN 0.2 E.U./dl (0.0-1.0)
[2025-01-29 10:55] LABS: BUN 5 mg/dl (9-23); GAMMA GLUTAMYL TRANSFERASE 20 U/L (0-38); LDL CHOLESTEROL 112 mg/dL (9-159); SGPT/ALT 10 U/L (5-49); T3 UPTAKE 27.3 % (22.4-36.7); THYROXINE (T4) TOTAL 8.2 ug/dl (4.5-10.9)
[2025-01-29 10:56] LABS: VITAMIN D, 25-HYDROXY 43.1 ng/mL (30-100)
[2025-01-29 11:00] LABS: BACTERIA 2+; EPITHELIAL CELLS 31-40; RBC 0-2 rbc/hpf (0-2); WBC 0-2 wbc/hpf (0-5)
== END | disposition home or self-care (01) ==
LOC: LAB 09:53
PROVIDERS: ATTEND Family Medicine
DX: R06.02 Shortness of breath (principal); R79.89 Other specified abnormal findings of blood chemistry; R74.8 Abnormal levels of other serum enzymes; E55.9 Vitamin D deficiency, unspecified; E78.5 Hyperlipidemia, unspecified